=== PATIENT | male | born 1965 | race Hispanic/Latino ===

== ENCOUNTER → 2021-12-11 | Outpatient (CLI) | payer BC | END | disposition home or self-care (01) | LOC: DAH 10:00 → EDSTATUS 12-18 09:00 | PROVIDERS: ATTEND Otolaryngology | DX: Z01.818 Encounter for other preprocedural examination (principal); D17.0 Benign lipomatous neoplasm of skin and subcutaneous tissue of head, face and neck; Z20.822 Contact with and (suspected) exposure to COVID-19; I10 Essential (primary) hypertension; Z98.890 Other specified postprocedural states | CPT/HCPCS: 87635; A6260; C9803 ==

== ENCOUNTER 2022-01-15 06:34 | Day surgery (SDC) | payer BC ==
[2022-01-12 15:23] LABS: CREATININE 1.2 mg/dL (0.5-1.5); POTASSIUM 3.9 mmol/L (3.5-5.1)
[2022-01-14 09:19] VITALS: BP 151/71
[~2022-01-15] VITALS: Ht 175.3 cm; Wt 101.3 kg
[2022-01-15] VITALS (16 sets, daily range): BP systolic 114–164; BP diastolic 57–86
[~2022-01-15 06:34] MED LIST: ENAL20TA18 PO; FENO145T26 PO; FISH OIL PO; HYDR25TA PO; METO-409 PO; ROSU20TA31 PO; VITAMIN D PO
[2022-01-15] MEDS ORDERED: 0.9%NACL 1000ML 1,000 ML IV ONE (07:04)
[2022-01-15] MEDS ORDERED: LIDOCAINE PF 100MG/5ML (2%) SYRINGE 5ML ONE (07:20)
[2022-01-15] MEDS ORDERED: PROPOFOL 10 MG/ML 20ML VIAL IV ONE ×3 (07:20→08:44)
[2022-01-15] MEDS ORDERED: MIDAZOLAM HCL 1 MG/ML 2ML VIAL ONE (07:21)
[2022-01-15] MEDS ORDERED: FENTANYL CITRATE PF 50 MCG/1 ML 2ML VIAL ONE ×2 (07:21→08:32)
[2022-01-15] MEDS ORDERED: CEFAZOLIN SODIUM 2 GM VIAL IV ONE (08:00)
[2022-01-15] MEDS ORDERED: DEXAMETHASONE SOD PHOSPHATE 10MG/ML 1ML VIAL ONE (08:03)
[2022-01-15] MEDS ORDERED: ONDANSETRON 4MG INJ ONE (08:03)
[2022-01-15] MEDS ORDERED: LIDOCAINE 1%-EPI 1:100,000 20 ML VIAL IJ SCH (08:30)
[2022-01-15] MEDS ORDERED: ROCURONIUM 10MG/1ML SYR 10 MG/ML ML ONE (08:49)
[2022-01-15] MEDS ORDERED: EPHEDRINE SULFATE 50 MG/ML AMPULE ONE (10:06)
[2022-01-15] MEDS ORDERED: NEOMY SULF/BACITRAC ZN/POLY OINT 30GM TUBE TP ONE (10:16)
== END 2022-01-15 12:05 | disposition home or self-care (01) ==
LOC: DAH 06:34
PROVIDERS: ATTEND Otolaryngology
DX: D17.0 Benign lipomatous neoplasm of skin and subcutaneous tissue of head, face and neck (principal); I10 Essential (primary) hypertension; Z98.890 Other specified postprocedural states; Z79.899 Other long term (current) drug therapy
CPT/HCPCS: 36415; 42415; 80048; 82948 ×2; 87635; A4215; A4221; A4222; A4223; A4663; A4930; A6446; C9803; J0690; J1100; J2001; J2250; J2405; J2704 ×3; J3010 ×2; J3490 ×2; J7030